=== PATIENT | male | born 1965 | race Caucasian/White ===

== ENCOUNTER 2018-01-16 20:22 | Emergency (ER) | payer BC, MEDICAID ==
[2018-01-16 22:01] LABS: % BASOPHILS 0.8 % (0.0-2.0); % EOSINOPHILS 2.6 % (0.0-5.0); % LYMPHOCYTES 23.7 % (20.0-50.0); % MONOCYTES 11.2 % (2.0-10.0); % NEUTROPHILS 61.7 % (40.0-80.0); BASOPHILE ABSOLUTE 0.1 Th/cumm (0-0.2); EOSINOPHILE ABSOLUTE 0.3 Th/cmm (0.1-0.4); HEMATOCRIT 38.9 % (41.0-60); LYMPHOCYTE ABSOLUTE 2.3 Th/cmm (1.5-3.0); MEAN CELL VOLUME 80.3 fl (80-99); MEAN CORPUSCULAR HEMOGLOBIN 26.8 pg (26.0-30.0); MEAN CORPUSCULAR HGB CONC 33.4 pg (28.0-36.0); MEAN PLATELET VOLUME 7.2 fl; MONOCYTE ABSOLUTE 1.1 Th/cmm (0.3-1.0); PLATELET COUNT 355 Th/cmm (150-400); RED BLOOD COUNT 4.84 Mil/cmm (4.30-5.70); RED CELL DISTRIBUTION WIDTH 19.2 % (11.5-20.0); WHITE BLOOD COUNT 9.8 Th/cmm (4.8-10.8)
[2018-01-16 22:18] LABS: ALB/GLOB RATIO 1.5 (1.0-1.8); ALKALINE PHOSPHATASE 78 U/L (34-104); ANION GAP 10.7 (7.0-16.0); BILIRUBIN,TOTAL 0.3 mg/dL (0.3-1.0); BUN - UREA NITROGEN 18 mg/dL (7-25); CALCIUM SERUM 9.1 mg/dL (8.6-10.3); CARBON DIOXIDE 26.7 mEq/L (21.0-31.0); CHLORIDE 104 mEq/L (98-107); CREATININE - SERUM 1.1 mg/dL (0.7-1.3); GFR AFRICAN-AMERICAN > 60.0 ml/min (>90); GFR NON AFRICAN-AMERICAN > 60.0 ml/min; GLUCOSE 107 mg/dL (70-105); POTASSIUM SERUM 3.4 mEq/L (3.5-5.1); SGOT 15 U/L (13-39); SGPT/ALT 19 U/L (7-52); SODIUM SERUM 138 mEq/L (136-145); TOTAL PROTEIN,SERUM 6.7 gm/dL (6.0-8.3)
--- NOTE | 2018-01-17 00:05 | ED Physician Chart ---
ED Chief Complaint/HPI - Patient Information Date Seen:: 01/16/18 Time Seen:: 20:45 Chief Complaint:: R elbow pain with drainage History of Present Illness:: R elbow pain with drainage that spontaneously drained. Allergies:: Allergies Allergy/AdvReac Type Severity Reaction Status Date / Time No Known Allergies Allergy Verified 01/16/18 20:57 Vitals:: Vital Signs - 8 hr 01/16/18 20:45 Temp 98.3 F HR 87 RR 18 BP 135/87 O2 Sat % 96 ED Review of Systems - Review of Systems General/Constitutional: No fever, No chills, No weight loss, No weakness, No diaphoresis, No edema, No loss of appetite Skin: Other (R elbow redness and pain) Head: No headache, No light-headedness Eyes: No loss of vision, No pain, No diplopia ENT: No earache, No nasal drainage, No sore throat, No tinnitus Neck: No neck pain, No swelling, No thyromegaly, No stiffness, No mass noted Cardio Vascular: No chest pain, No palpitations, No PND, No orthopnea, No edema Pulmonary: No SOB, No cough, No sputum, No wheezing GI: No nausea, No vomiting, No diarrhea, No pain, No melena, No hematochezia, No constipation, No hematemesis G/U: No dysuria, No frequency, No hematuria Musculoskeletal: No bone or joint pain, No back pain, No muscle pain Endocrine: No polyuria, No polydipsia Psychiatric: No prior psych history, No depression, No anxiety, No suicidal ideation Hematopoietic: No bruising, No lymphadenopathy Allergic/Immuno: No urticaria, No angioedema Neurological: No syncope, No focal symptoms, No weakness, No paresthesia, No headache, No seizure, No dizziness, No confusion, No vertigo Family Medical History - Family Member Mother History Unknown: Yes ED Physical Exam - Physical Examination General/Constitutional: Awake, Well-developed, well-nourished, Alert, No distress, GCS 15, Non-toxic appearing, Ambulatory Head: Atraumatic Eyes: Lids, conjuctiva normal, PERRL, EOMI Skin: Nl inspection Other Skin comments:: R elbow wound with no pus evident. Small area of surrounding pinkness present , 2 cm x 2 cm. No evidence of lymphangitis. ENMT: External ears, nose nl, Nasal exam nl, Lips, teeth, gums nl Neck: Nontender, Full ROM w/o pain, No JVD, No nuchal rigidity, No bruit, No mass, No stridor Respiratory: Nl effort/Exclusion, Clear to Auscultation, No Wheeze/Rhonchi/Rales Cardio Vascular: RRR, No murmur, gallop, rubs, NL S1 S2 GI: No tenderness/rebounding/guarding, No organomegaly, No hernia, Normal BS's, Nondistended, No mass/bruits, No McBurney tenderness : No CVA tenderness Extremities: No tenderness or effusion, Full ROM, normal strength in all extremities, No edema, Normal digits & nails Other Extremities comments:: R elbow wound with no pus evident. Small area of surrounding pinkness present, 2 cm x 2 cm. No lymphangitis. No abscess. Nothing that needs to be drained. No lymphadenopathy. No evidence of compartment syndrome. 2 + pulses. Neuro/Psych: Alert/oriented, DTR's symmetric, Normal sensory exam, Normal motor strength, Judgement/insight normal, Mood normal, Normal gait, No focal deficits Misc: Normal back, No paraspinal tenderness ED Labs/Radiology/EKG Results - Lab Results Results: Laboratory Tests 01/16/18 01/16/18 21:43 21:43 WBC 9.8 RBC 4.84 Hgb 13.0 Hct 38.9 L MCV 80.3 MCH 26.8 MCHC Differential 33.4 RDW 19.2 Plt Count 355 MPV 7.2 Neutrophils % 61.7 Lymphocytes % 23.7 Monocytes % 11.2 H Eosinophils % 2.6 Basophils % 0.8 Sodium 138 Potassium 3.4 L Chloride 104 Carbon Dioxide 26.7 Anion Gap 10.7 BUN 18 Creatinine 1.1 Est GFR ( Amer) > 60.0 Est GFR (Non-Af Amer) > 60.0 BUN/Creatinine Ratio 16.4 Glucose 107 H Calcium 9.1 Total Bilirubin 0.3 AST 15 ALT 19 Alkaline Phosphatase 78 Total Protein 6.7 Albumin 4.0 L Globulin 2.7 Albumin/Globulin Ratio 1.5 ED Assessment - Assessment General Assessment: patient doing well. no complaints. ED Septic Shock - . Is Septic Shock (SBP<90, OR Lactate>4 mmol\L) present?: No - <6hrs of presentation: Vital Signs: Vital Signs - 8 hr 01/16/18 20:45 Temp 98.3 F HR 87 RR 18 BP 135/87 O2 Sat % 96 ED Reassessment (Disposition) - Reassessment Reassessment Condition:: Improved - Diagnosis Diagnosis:: Right elbow, infected bursa. - Aftercare/Follow up Instructions Aftercare/Follow-Up Instructions:: Refer to Discharge Instructions Medication Prescribed:: bactrim and doxycycline. [place]. - Patient Disposition Discharge/Transfer:: Home Condition at Disposition:: Stable, Improved
[2018-01-17] MEDS ORDERED: Potassium Chloride 20 mEq ER Tab PO ONE ×2 (00:07→00:22)
[2018-01-17] MEDS ORDERED: Bacitracin pkt 1 gm Pkt TP ONE (00:34)
[2018-01-17] MEDS ORDERED: Bacitracin pkt 1 gm Pkt TP STA (01:47)
== END 2018-01-17 01:20 | disposition home or self-care (01) ==
LOC: ER 20:22
DX: M71.121 Other infective bursitis, right elbow (principal)
CPT/HCPCS: 99284; 96365; 96375; 36415; 85025; 80053; 87040; J1885; J3370; Z7502